=== PATIENT | female | born 1970 | race Caucasian/White ===

== ENCOUNTER → 2017-01-23 | Outpatient (CLI) | payer OTHER | LOC: FIMAGING 10:41 | DX: Z12.31 Encounter for screening mammogram for malignant neoplasm of breast (principal) | CPT/HCPCS: G0202 ==

== ENCOUNTER → 2017-11-03 | Outpatient (CLI) | payer OTHER | LOC: BMCIMAGING 08:21 | PROVIDERS: ATTEND Internal Medicine | DX: R07.9 Chest pain, unspecified (principal) ==

== ENCOUNTER → 2017-12-15 | Outpatient (CLI) | payer OTHER | LOC: FIMAGING 10:19 → EDSTATUS 10:20 | PROVIDERS: ATTEND Internal Medicine | DX: M53.9 Dorsopathy, unspecified (principal) ==

== ENCOUNTER → 2018-02-26 | Outpatient (CLI) | payer OTHER | LOC: FIMAGING 10:29 | PROVIDERS: ATTEND Hospitalist | DX: Z12.31 Encounter for screening mammogram for malignant neoplasm of breast (principal) ==

== ENCOUNTER 2018-10-05 08:46 | Day surgery (SDC) | payer BC, OTHER ==
--- NOTE | 2018-10-01 17:03 | GHP ---
PLANNED PROCEDURE: Hysteroscopy with morcellation of endometrial tissue and an endometrial fibroid and endometrial ablation. INDICATIONS: Patient is a 47-year-old, 2, para 2-0-0-2, who has been having cycles every 23-30 days, which includes 6-7 days of gushing blood. She uses a super plus tampon every few hours and has significant cramps. She is having occasional hot flashes and a little bit of changes in mood and irritability before her cycles. Pelvic ultrasound was obtained which showed a uterus measuring 9.6 x 5.1 x 5.7 cm with an endometrium measured at 0.83 cm and the anterior submucosal fibroid measuring 1.5 x 1.5 x 1.8 cm and an anterior intramural fibroid measuring 1.7 x 1.2 x 1.63 cm. Her ovaries are unremarkable. Management options were reviewed extensively with the patient. She would like to avoid a hysterectomy at this time if at all possible, and would like to avoid hormones. She would like to proceed with a hysteroscopy with morcellation of endometrial tissue, morcellation of the fibroid and an endometrial ablation. Risks and benefits have been extensively reviewed with the patient including the fact that there is a possibility in removing the fibroid that it will thin the wall of the uterus making the endometrial ablation not safe time, and the potential as needing to proceed with a hysterectomy risks and benefits. The patient has been properly consented. MEDICAL HISTORY: Menorrhagia, cervical dysplasia. MEDICATIONS: None. SURGICAL HISTORY: LEEP excision of cervix, removal of ruptured bursa sac from her elbow. ALLERGIES: Flagyl. SOCIAL HISTORY: Patient is . She denies tobacco or drug use. She does drink 4 alcoholic beverages a week. 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 FAMILY MEDICAL HISTORY: Noncontributory. 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 Periods every 23-28 days that are very, very heavy. She is a 2, para 2-0-0-2. She has had 2 spontaneous vaginal deliveries. REVIEW OF SYSTEMS: A 10-point review of systems is negative with the exception of the above-mentioned pertinent positives. PHYSICAL EXAMINATION: VITAL SIGNS: The patient's vital signs are stable. GENERAL APPEARANCE: Alert and oriented x3. MUSCULOSKELETAL: Grossly intact. NEURO: Grossly intact. PSYCH: Appropriate affect. HEART: Rate is regular. LUNGS: Clear to auscultation bilaterally. ABDOMEN: Soft, nondistended, nontender. EXTREMITIES: No calf tenderness or edema. PELVIC: Exam reveals a mobile midposition uterus with no adnexal masses. Pelvic ultrasound is described above. ASSESSMENT/PLAN: A 47-year-old 2, para 2-0-0-2 with menorrhagia and a submucosal fibroid. She will undergo hysteroscopy with morcellation of endometrial tissue and the fibroid, and ablation of the endometrium. We discussed doing a biopsy ahead of time and the patient declines, but is aware that that if the pathology is abnormal at time of surgery, she will need to have a hysterectomy in the postop recovery period. Risks and benefits have been reviewed with the patient and patient has been properly consented. /[id number]/MODL MTDD
[2018-10-05] MEDS ORDERED: LR 1,000 ML IV ONE (08:59)
[2018-10-05] MEDS ORDERED: MIDAZOLAM 2 MG/2 ML VIAL IVP ONE (09:19)
[2018-10-05] MEDS ORDERED: DOXYCYCLINE INJ 100 MG in NS 250 ML IV SCH (09:30)
[2018-10-05] MEDS ORDERED: SILVER NITRATE APPLICATOR 1 APPL TP ONE (09:37)
--- NOTE | 2018-10-05 10:16 | PDHPUP ---
History & Physical Update H&P update statement: This history and physical update is based on an assessment of the patient which was completed after admission or registration (within 24 hours), but prior to the surgery/procedure. H&P update: H&P reviewed & patient examined, no change in patient's condition since H&P completed
[2018-10-05] MEDS ORDERED: fentaNYL 100 MCG/2 ML INJ ONE (10:31)
[2018-10-05] MEDS ORDERED: PROPOFOL 200 MG/20 ML VIAL ONE (10:31)
--- NOTE | 2018-10-05 10:34 | PDANEPAE ---
ANE Past Medical History - Cardiovascular History Hx Hypertension: No Hx Arrhythmias: No Hx Chest Pain: No Hx Coronary Artery / Peripheral Vascular Disease: No Hx CHF / Valvular Disease: No Hx Palpitations: No - Pulmonary History Hx COPD: No Hx Asthma/Reactive Airway Disease: No Hx Recent Upper Respiratory Infection: No Hx Oxygen in Use at Home: No Hx Sleep Apnea: No Sleep Apnea Screening Result - Last Documented: Negative - Neurologic History Hx Cerebrovascular Accident: No Hx Seizures: No Hx Dementia: No - Endocrine History Hx Diabetes: No - Renal History Hx Renal Disorders: No - Liver History Hx Hepatic Disorders: No - Neurological & Psychiatric Hx Hx Neurological and Psychiatric Disorders: No - Cancer History Hx Cancer: No - Congenital Disorder History Hx Congenital Disorders: No - GI History Hx Gastrointestinal Disorders: Yes Gastrointestinal History Comment: occasional constipation - Other Health History Other Health History: wears glasses - Chronic Pain History Chronic Pain: No - Surgical History Prior Surgeries: ruptured bursa sac removed from right elbow 15 yrs ago ANE Review of Systems Review of Systems: - Exercise capacity METS (RN): 5 METS ANE Patient History - Allergies Allergies/Adverse Reactions: No Known Allergies Allergy (Verified 09/13/18 14:56) - Home Medications Home Medications: NK [No Known Home Meds] 09/13/18 [Last Taken Unknown] - NPO status NPO Since - Liquids (Date): 10/05/18 NPO Since - Liquids (Time): 06:45 NPO Since - Solids (Date): 10/04/18 NPO Since - Solids (Time): 18:30 - Smoking Hx Smoking Status: Never smoked - Family Anes Hx Family Hx Anesthesia Complications: none ANE Labs/Vital Signs - Vital Signs Blood Pressure: 114/71 Heart Rate: 65 Respiratory Rate: 16 O2 Sat (%): 99 Height: 160.02 cm Weight: 54.431 kg ANE Physical Exam - Airway Neck exam: FROM Mallampati Score: Class 1 - Pulmonary Pulmonary: no respiratory distress, clear to auscultation - Cardiovascular Cardiovascular: regular rate and rhythym - ASA Status ASA Status: II ANE Anesthesia Plan Anesthesia Plan: GA w LMA
[2018-10-05] MEDS ORDERED: ONDANSETRON 4 MG/2 ML VIAL ONE (10:59)
[2018-10-05] MEDS ORDERED: KETOROLAC 30 MG/1 ML SDV ONE (10:59)
[2018-10-05] MEDS ORDERED: DEXAMETHASONE 4 MG/ML VIAL ONE (10:59)
[2018-10-05] MEDS ORDERED: MEPERIDINE 25 MG/0.5 ML AMP IVP PRN (11:09)
[2018-10-05] MEDS ORDERED: LR 500 ML IV PRN (11:09)
[2018-10-05] MEDS ORDERED: DEXAMETHASONE 4 MG/ML VIAL IVP PRN (11:09)
[2018-10-05] MEDS ORDERED: ONDANSETRON 4 MG/2 ML VIAL IVP PRN (11:09)
[2018-10-05] MEDS ORDERED: METOCLOPRAMIDE 10 MG/2 ML VIAL IVP PRN (11:09)
[2018-10-05] MEDS ORDERED: HYDROmorphONE/DILAUDID 2 MG/ML INJ IVP PRN (11:09)
[2018-10-05] MEDS ORDERED: fentaNYL 100 MCG/2 ML INJ IVP PRN (11:09)
[2018-10-05] MEDS ORDERED: DIAZEPAM 5 MG/ML 1 ML SYR IVP PRN (11:09)
[2018-10-05] MEDS ORDERED: ALBUTEROL 3 ML DEYVIAL IH PRN (11:09)
[2018-10-05] MEDS ORDERED: NALOXONE HCL 0.4 MG/ML INJ IVP PRN (11:09)
[2018-10-05] MEDS ORDERED: PROMETHAZINE HCL 25 MG/ML INJ IVP PRN (11:09)
--- NOTE | 2018-10-05 13:08 | POSTANESTH ---
Post Anesthetic Evaluation Cardiovascular Status: Normal, Stable Respiratory Status: Normal, Stable Level of Consciousness/Mental Status: Can Participate in Eval, Moderately Sleepy Pain Control: Adequate, Prn Tx Ordered Nausea/Vomiting Control: Adequate, Prn Tx Ordered Complications Possibly Related to Anesthesia: None Noted
[2018-10-05 13:23] VITALS: BP 111/84
--- NOTE | 2018-10-06 16:49 | GOP ---
DATE OF OPERATION: 10/05/2018 SURGEON: Lucy Bland DO ANESTHESIA: General with LMA. PREOPERATIVE DIAGNOSIS: Menorrhagia. POSTOPERATIVE DIAGNOSIS: Menorrhagia. PROCEDURE PERFORMED: Hysteroscopy with morcellation of endometrial tissue and partial morcellation o f fibroid and endometrial ablation. FINDINGS: 1. Exam under anesthesia: Mobile midposition uterus with no adnexal masses. 2. Hysteroscopic findings: Slightly thickened endometrium, submucosal fibroid anteriorly. Bilatera l tubal ostia visualized. SPECIMENS: Endometrial curettings. ESTIMATED BLOOD LOSS: 10 cc. INDICATIONS: Patient is a 47-year-old, 2, para 2-0-0-2 who has been having cycles every 23 t o 30 days, which are 6 to 7 days of gushing blood. A pelvic ultrasound was obtained, which showed a submucosal fibroid, otherwise unremarkable uterus. The lining was slightly thickened and the fibroid was submucosal, but did extend at least long term through into the myometrium, so management options w ere reviewed extensively with the patient. Decision was made to proceed with a hysteroscopy with mor cellation of endometrial tissue, attempted morcellation of the fibroid, and endometrial ablation. Ri sks and benefits of the procedure were reviewed with the patient and patient was properly consented. DESCRIPTION OF PROCEDURE: Patient was taken to the operating room with intravenous fluids in place. She was then placed on the operating room table in there dorsal supine position, where general anest hesia was obtained. She was given 100 mg of doxycycline intravenously. She was then repositioned in to the dorsal lithotomy position with the Yellofin stirrups and prepped and draped in normal sterile fashion. Exam under anesthesia revealed a mobile, midposition uterus with no adnexal masses. A speculum was t hen placed in the patient's vagina. An Allis clamp was used to grasp the anterior lip of the cervix and the cervix was then dilated to allow for the introduction of an operative hysteroscope. The hysteroscope was then introduced with fluid medium running. The endometrial cavity showed slight ly thickened endometrium. Bilateral tubal ostia were visualized. The morcellator was then introduce d and a circumferential morcellation was performed. Upon morcellating the endometrium, an anterior s ubmucosal fibroid was noted, and I attempted to remove much of the fibroid; however, due to concerns of extending into the myometrium too much to make the endometrial ablation safe, decision was made to only perform a partial myomectomy. The cavity length was 8 cm. Endometrial ablation was performed with the Karen following cavity assessment. The Karen was then withdrawn and the hysteroscope wa s then introduced. Diffusely ablated endometrial cavity was noted. Instruments were then removed from the patient's vagina. Bleeding was noted to be minimal. Patient was transferred to recovery room in stable condition where she was easily awoken from anesthesia. Sp onge count was correct. The patient was transferred to recovery room in stable condition. /[id number]/MODL
== END 2018-10-05 14:20 | disposition home or self-care (01) ==
LOC: FSGY 08:46
PROVIDERS: ATTEND Obstetrics & Gynecology
PROC: 0UDB8ZX Extraction of Endometrium, Via Natural or Artificial Opening Endoscopic, Diagnostic (ICD-10-PCS; principal; 2018-10-05 10:30)
DX: N92.0 Excessive and frequent menstruation with regular cycle (principal); D25.0 Submucous leiomyoma of uterus; D25.1 Intramural leiomyoma of uterus
CPT/HCPCS: 58558; C1782; J1100; J1885; J2250; J2405; J2704; J3010